=== PATIENT | male | born 1955 ===

== ENCOUNTER 2023-10-31 11:20 | Emergency (ER) | payer BC ==
[~2023-10-31 11:20] MED LIST: Propofol 200 MG/20 ML SDV ONE; Tranexamic Acid 1,000 MG/10 ML Vial ONE; fentaNYL/Normal Saline 0 ML ONE; fentaNYL/Normal Saline 2,500 MCG in Premix Bag 1 BAG IV ONE; niCARdipine/Normal Saline 0 ML ONE; niCARdipine/Normal Saline 20 MG in Premix Bag 1 BAG IV ONE; propofoL 0 ML ONE
[2023-10-31] MEDS: Tranexamic Acid 1,000 MG in Sodium Chloride 0.9% 100 ML IV ONE (11:29)
[2023-10-31] MEDS: Lactated Ringers 1,000 ML IV ONE (11:30)
[2023-10-31] MEDS ORDERED: Midazolam 5 MG/ML SDV ONE (11:37)
[2023-10-31] MEDS: Midazolam 1 MG/ML 2 ML SDV IVPUSH STA (11:40)
[2023-10-31] MEDS: Rocuronium 50 MG/5 ML Vial IVPUSH STA (11:41)
[2023-10-31 11:52] LABS: HEMATOCRIT 42.8 % (42.0-52.0); HEMOGLOBIN 14.4 g/dL (14.0-18.0); MEAN CORPUSCULAR HEMOGLOBIN 33.3 pg (28.0-32.0); MEAN CORPUSCULAR HGB CONC 33.6 g/dL (32.0-36.0); MEAN CORPUSCULAR VOLUME 99.1 fL (83.0-99.0); MEAN PLATELET VOLUME 9.7 fL (9.4-12.4); NRBC ABSOLUTE 0.06 K/uL (0.00-0.02); NRBC PERCENT 0.1 /100WBC (0.0-0.2); PLATELET COUNT,PLT 260 K/uL (150-400); RED BLOOD CELL COUNT 4.32 M/uL (4.52-5.90)
[2023-10-31 11:54] LABS: WHITE BLOOD CELL COUNT,WBC 40.54 K/uL (3.9-11.3)
[2023-10-31] MEDS: Erythromycin Base 0.5% Ophth Oint 1 GM Tube EYEBOTH STA (11:57)
[2023-10-31] MEDS: ceFAZolin 1 GM in Sodium Chloride 0.9% 50 ML IV STA (12:01)
[2023-10-31] MEDS: ceFAZolin 2 GM in Sodium Chloride 0.9% 50 ML IV STA (12:01)
[2023-10-31 12:14] LABS: BAND ABSOLUTE MAN 2.43; BAND PERCENT MAN 6 %; LYMPHOCYTES ABSOLUTE MAN 2.84 K/uL (1.00-4.80); LYMPHOCYTES PERCENT MAN 7 % (24-44); MONOCYTES ABSOLUTE MAN 1.22 K/uL (0.00-0.80); MONOCYTES PERCENT MAN 3 % (0-8); SEG NEUTROPHILS ABSOLUTE MAN 34.05 K/uL (1.80-7.70); SEG NEUTROPHILS PERCENT MAN 84 % (41-71)
[2023-10-31 12:15] LABS: INR 1.16 (0.86-1.11); PTT,PARTIAL THROMBOPLSTIN TIME 30.8 SEC (23.9-30.7)
[2023-10-31 12:20] LABS: A/G RATIO 1.2 (0.9-1.6); ALANINE AMINOTRANSFERASE,ALT 63 IU/L (14-63); ALBUMIN 3.6 g/dL (3.4-5.0); ALKALINE PHOSPHATASE 81 U/L (46-116); ASPARTATE AMNIOTRANSFERASE,AST 70 IU/L (15-37); BILIRUBIN TOTAL 0.9 mg/dL (0.2-1.0); BLOOD UREA NITROGEN,BUN 12 mg/dL (7.0-18.0); CALCIUM 8.7 mg/dL (8.5-10.1); CARBON DIOXIDE,CO2 24.9 mmol/L (21.0-32.0); CHLORIDE,CL 101 mmol/L (98-107); CREATININE 1.7 mg/dL (0.8-1.3); GLUCOSE RANDOM 258 mg/dL (74-106); LIPASE 46 U/L (16-77); POTASSIUM,K 3.6 mmol/L (3.5-5.1); PROTEIN TOTAL,TP 6.6 g/dL (6.4-8.2); SODIUM,NA 140 mmol/L (136-148)
[2023-10-31 12:21] LABS: ESTIMATED GFR 43 mL/min (>60)
[2023-10-31] MEDS: Midazolam 1 MG/ML 2 ML SDV IVPUSH ONE (12:45)
[2023-11-01] MEDS: Tranexamic Acid IN NACL,ISO-OS 1,000 MG in Premix Bag 1 BAG IV ONE (09:11)
[2023-11-01] MEDS: Tranexamic Acid 1,000 MG in Sodium Chloride 0.9% 100 ML IV ONE (09:11)
[2023-11-01] MEDS: Erythromycin Base 0.5% Ophth Oint 1 GM Tube ONE (09:21)
[2023-11-01] MEDS: Benzocaine 20% Topical Spray UD MUCMEM ONE (09:26)
== END 2023-10-31 12:55 ==
LOC: MW.ED 11:20
DX: S09.90XA Unspecified injury of head, initial encounter (principal); I95.9 Hypotension, unspecified; Z91.013 Allergy to seafood; W11.XXXA Fall on and from ladder, initial encounter
CPT/HCPCS: 31500; 36415; 36430; 51702; 71045; 80053; 83690; 84484; 85025; 85610; 85730; 86850; 86900; 86901; 86920; 96365; 96368; 96375; 99291; 99292; A9270; G0390; J0690; J1953; J2250; J2704; J3490; J7060; J7120; P9016; 99284